=== PATIENT | male | born 1995 | race Caucasian/White ===

== ENCOUNTER 2019-08-10 13:27 | Emergency (ER) | payer OTHER, SELFPAY ==
[2019-08-10 13:44] VITALS: BP 120/76; PULSE 77; RESP 16; TEMP 37.1; O2SAT 98
--- NOTE | 2019-08-10 13:56 | ED.EAR ---
HPI - Ear Problem General Chief complaint: Ear Stated complaint: ear pain Time Seen by Provider: 08/10/19 13:51 Source: patient and RN notes reviewed Mode of arrival: ambulatory Limitations: no limitations History of Present Illness HPI Narrative: Patient presents today complaining of right ear pain, absent hearing since yesterday. Denies drainage. Currently rates his pain 5/10. He applied peroxide and attempted to flush his ear out yesterday with little resulting. He has tried no cooe-jvv-zlaepey medicines for pain prior to arrival. MD Complaint: ear pain Related Data Home Medications Medication Instructions Recorded Confirmed citalopram [Celexa] 10 mg PO DAILY 08/10/19 08/10/19 clonidine HCl [Catapres] 0.4 mg PO HS 08/10/19 08/10/19 Allergies Allergy/AdvReac Type Severity Reaction Status Date / Time No Known Allergies Allergy Verified 08/10/19 13:50 Review of Systems Review of Systems: Narrative: CONSTITUTIONAL: Denies body aches, fever, chills, or sweats. EYES: Denies visual changes, redness, or discharge. ENT: Denies rhinorrhea, congestion, sore throat. + Right ear pain CARDIOVASCULAR: Denies chest pain, palpitations, or edema. RESPIRATORY: Denies cough or dyspnea. GASTROINTESTINAL: Denies abdominal pain, nausea, vomiting, or diarrhea. GENITOURINARY: Denies dysuria or hematuria. SKIN: Denies rash, itching, or wounds. MUSCULOSKELETAL: Denies back pain, joint pain, or myalgia. NEUROLOGIC: Denies headache, numbness, tingling, or weakness. PSYCH: Denies depression or anxiety. PMFSH Social History Social History Gender identity (if verbalized by the patient): Male Comments At time of signature, I have reviewed and agree with nursing past medical, surgical, social and family history unless otherwise noted. Please see nursing chart for further information. There is no relevant family history pertinent to the presenting complaint Exam Narrative: Exam Narrative: GENERAL: Well-appearing, over-nourished, and in no acute distress. HEAD: Normocephalic, atraumatic. EYES: EOMI. No redness or drainage. Conjunctivae normal. ENT: Mucous membranes pink and moist. Bilateral ear canals are impacted with wax. TMs are not visualized. NECK: Normal AROM. CHEST: No respiratory distress. EXTREMITIES: Normal range of motion. No edema. SKIN: Warm, dry, no rash. Capillary refill normal. Normal skin turgor. NEURO: No focal deficits. Alert and oriented x3. Gait steady. PSYCH: Normal affect. No signs of depression or anxiety. Course Vital Signs Vital signs: Vital Signs Temperature 98.7 F 08/10/19 13:44 Pulse Rate 77 08/10/19 13:44 Respiratory Rate 16 08/10/19 13:44 Blood Pressure 120/76 08/10/19 13:44 Pulse Oximetry 98 08/10/19 13:44 Temperature 98.7 F 08/10/19 13:44 Pulse Rate 77 08/10/19 13:44 Respiratory Rate 16 08/10/19 13:44 Blood Pressure 120/76 08/10/19 13:44 Pulse Oximetry 98 08/10/19 13:44 Reviewed Procedures Ear Wax Removal Both Ears: Ear Wax Removal Date: 08/10/19 Ear Wax Removal Time: 13:58 Cerumenolytic Used: other (Hydrogen peroxide) Results: Re-examined: some cerumen remains TM Examination: TM(s) intact, normal appearance Ear Canal Exam: atraumatic Patient Tolerated Procedure: well Complications: no problems Technique: ear canal irrigated Additional Comments: Cerumen only removed from right ear, not both. Medical Decision Making Differential Diagnosis Differential Diagnosis: Otitis media, otitis externa, ruptured TM, serous otitis, eustachian tube dysfunction, cerumen impaction Vital Signs Vital Signs: Vital Signs Temperature 98.7 F 08/10/19 13:44 Pulse Rate 77 08/10/19 13:44 Respiratory Rate 16 08/10/19 13:44 Blood Pressure 120/76 08/10/19 13:44 Pulse Oximetry 98 08/10/19 13:44 Temperature 98.7 F 08/10/19 13:44 Pulse Rate 77 08/10/19 13:44 Respiratory Ra
== END 2019-08-10 15:03 | disposition home or self-care (01) ==
PROVIDERS: Emergency Provider Nurse Practitioner; PCP Physician Assistant
DX: H61.21 Impacted cerumen, right ear (principal)
CPT/HCPCS: 69209; 99212; G0463

== ENCOUNTER 2019-09-11 03:48 | Emergency (ER) | payer OTHER, SELFPAY ==
[2019-09-11 03:55] VITALS: BP 141/76; PULSE 83; RESP 18; TEMP 36; O2SAT 99
--- NOTE | 2019-09-11 04:11 | ED.HA ---
HPI - Headache General Chief Complaint: Headache Stated Complaint: headache Time Seen by Provider: 09/11/19 03:56 Source: patient Mode of arrival: ambulatory Limitations: no limitations History of Present Illness HPI Narrative: This patient is a 23 year old male who presents for evaluation of frontal headache x 4 days. He states he has had constant front headache for 4 days. His pain may be worse with moving his head. He denies associated nausea, vomiting, visual changes, fever, chills, sinus symptoms, numbness , tingling or weakness. He took ibuprofen 2 days ago and tonight he took tylenol 650 mg. He also denies history of head trauma. MD elicited complaint: headache Location: frontal Pain scale (0-10): 6 Quality & Timing: dull Exacerbating factors: movement of head/neck Relieving factors: nothing Context: occurred at rest Treatments prior to arrival: acetaminophen Related Data Home Medications Medication Instructions Recorded Confirmed citalopram [Celexa] 10 mg PO DAILY 08/10/19 08/10/19 clonidine HCl [Catapres] 0.4 mg PO HS 08/10/19 08/10/19 Allergies Allergy/AdvReac Type Severity Reaction Status Date / Time No Known Allergies Allergy Verified 08/10/19 13:50 Review of Systems Review of Systems: All systems reviewed & are unremarkable except as noted in HPI and below Constitutional: Constitutional: Denies chills, Denies fever(s) and Denies weakness Eyes: Eyes: Reports no additional eye complaints, Denies change in vision and Denies photophobia ENT: Denies dizziness, Denies nasal congestion and Denies sore throat Gastrointestinal: Gastrointestinal: Denies diarrhea, Denies nausea and Denies vomiting Neurologic: Denies confusion, Denies vertigo, Denies dizziness, Denies syncope, Reports headache(s), Denies focal weakness, Denies numbness and Denies weakness [facility] Past Medical History Medical History (Updated 09/11/19 @ 05:06 by Yanira Arvizu MD) Hypertension Social History Social History Gender identity (if verbalized by the patient): Male Exam Const: General: no acute distress and alert Orientation/consciousness: patient oriented x3 HENMT: Head: normocephalic and atraumatic General nose exam: Normal external nose present and Normal nares present Face and sinus: sinuses nontender and face symmetric Mouth: Yes Normal oral and palatal mucosa present, Yes lip normal and Yes oropharynx normal Throat: posterior oropharynx normal, tonsils normal and uvula midline Eyes: Conjunctivae: conjunctivae normal Pupils: Equal, round and reactive pupils present EOM: EOMs intact bilaterally Chest: Chest palpation & inspection: normal inspection of the chest Resp: Effort & Inspection: normal respiratory effort and no retractions Auscultation: clear to auscultation bilaterally Cardio: Rate: regular rate Rhythm: regular rhythm Heart sounds: no murmurs GI: GI Palp: Yes Soft to palpation, No Tenderness to palpation present (GI), No Guarding due to palpation present (GI), No Rigid due to palpation and No Hernia present Skin: General skin exam: normal color Rashes: no rashes Other: flaky skin along frontal scalp hairline Neuro: General: patient oriented x3, moves all extremities and CN's II-XI intact bilaterally Gait exam (Neuro): Normal gait present Extrem: General: normal to inspection Psych: Mental Status: mental status grossly normal Course Reevaluation(s) Reevaluation #1: PAtient states his headache has completely resolved. I discussed with patient without other associated symptoms such as vomiting, dizziness, focal weaknes or visual changes his headache likely tension headache. He will follow up with PCP Date: 09/11/19 Time: 05:05 Vital Signs Vital signs: Vital Signs Temperature 96.8 F L 09/11/19 03:55 Pulse Rate 83 09/11/19 03:55 Respiratory Rate 18 09/11/19 03:55 Blood Pressure 141/76 H 09/11/19 03:55 Pulse Oximetry 99 09/11/19 03:55 Temperature
[2019-09-11] MEDS: KETOROLAC (*BKC) 60 MG/2 ML VIAL IM (04:19)
[2019-09-11] MEDS: ONDANSETRON HCL ODT 4 MG TABLET PO (04:19)
[2019-09-11 04:26] LABS: Add Urine Microscopic? YES; Appearance Urine Clear (Clear); Bilirubin Urine Negative (Negative); Blood Urine Negative (Negative); Color Urine Yellow (Yellow); Glucose Urine UA Negative (Negative); Ketones Urine Negative (Negative); Leukocyte Esterase Ur Negative LEU/UL (Negative); Mucus Urine Rare /lpf; Nitrate Urine Negative (Negative); Protein Urine Negative (Negative); RBC Urine 0-2 /hpf (0-2); Specific Grav Ur 1.028 (1.001-1.035); Squamous Epithelial Cell Urine Rare /hpf (Few); WBC Urine 0-3 /hpf
[2019-09-11 05:11] VITALS: BP 132/70; PULSE 70; RESP 18; O2SAT 98
[2020-08-16 10:27] VITALS: BP 146/89
== END 2019-09-11 05:12 | disposition home or self-care (01) ==
PROVIDERS: Emergency Provider General Practice; PCP Physician Assistant
DX: G44.209 Tension-type headache, unspecified, not intractable (principal); I10 Essential (primary) hypertension
CPT/HCPCS: 81001; 96372; 99283; A9270; J1885

== ENCOUNTER 2020-08-16 08:30 | Emergency (ER) | payer OTHER, SELFPAY ==
--- NOTE | ~2020-08-16 | CT_ITS ---
EXAMINATION: CT lumbar spine wo [facility] EXAM DATE: 08/16/2020 09:42 INDICATION: Low back pain, fall from height. TECHNIQUE: Spiral CT lumbar spine was performed without contrast. Axial, coronal and sagittal images of the lumbar spine were reviewed. The dose-length product (DLP) for this examination was 1283.48 mGy -cm. The exposure was tailored according to patient size (auto mA exposure control), and iterative r econstruction (ASIR) was used as additional dose reduction technique. There is no prior study for co mparison. FINDINGS: Intact sacroiliac joints. Chronic bilateral L5 spondylolysis with about 2 mm anterolisthesis L5 on S1 . There is no evidence of acute lumbar fracture. There is no disc space widening or traumatic verte bral body subluxation suspected. Paraspinal soft tissue is unremarkable. Vertebral body and disc he ights are well-maintained. A detailed level by level evaluation of spondylosis can be added as adde ndum if requested. IMPRESSION: 1. No acute lumbar findings. 2. Chronic L5 spondylolysis, minimal anterolisthesis. Reviewed, dictated and finalized at location A.
--- NOTE | ~2020-08-16 | CT_ITS ---
EXAMINATION: CT cervical spine wo con DATE: 08/16/2020 09:42 INDICATION: Neck pain after fall TECHNIQUE: Computed tomography (CT) of the cervical spine was performed without intravenous contrast. The dose-length product was 444 mGy-cm. Automated exposure control and iterative reconstruction tech nique were employed. COMPARISON: None FINDINGS: Lung apices are normal. Vertebral body and disc heights are preserved. No acute fracture, s ubluxation or dislocation. Odontoid process within normal limits. No significant paraspinal soft tiss ue abnormality. IMPRESSION: 1. No acute fracture. Reviewed, dictated and finalized at location B. IMPRESSION: 1. No acute fracture.
[2020-08-16 08:49] VITALS: BP 138/92; PULSE 92; RESP 18; TEMP 37.2; O2SAT 97
[2020-08-16 09:04] VITALS: BP 136/82; PULSE 99; RESP 15; TEMP 37.1; O2SAT 97
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
[2020-08-16] MEDS: KETOROLAC (*BKC) 60 MG/2 ML VIAL IM (09:19)
[2020-08-16 10:22] VITALS: BP 172/141; PULSE 91; RESP 16; O2SAT 98
== END 2020-08-16 10:24 | disposition home or self-care (01) ==
LOC: ANHED 10:14
PROVIDERS: Emergency Provider Emergency Medicine; PCP Physician Assistant
DX: S20.229A Contusion of unspecified back wall of thorax, initial encounter (principal); W11.XXXA Fall on and from ladder, initial encounter; I10 Essential (primary) hypertension
CPT/HCPCS: 72125; 72131; 96372; 99284; J1885

== ENCOUNTER 2020-10-26 16:25 | Emergency (ER) | payer OTHER, SELFPAY ==
[2020-10-26 16:33] VITALS: BP 129/72; PULSE 101; RESP 18; TEMP 37.1; O2SAT 97
--- NOTE | 2020-10-26 16:43 | ED.GENADULT ---
HPI - General Adult General Chief complaint: Upper Respiratory Infection Stated complaint: sore throat /cough Source: patient Mode of arrival: ambulatory Limitations: no limitations History of Present Illness HPI narrative: Patient is a 25-year-old male who presents to urgent care via POV for evaluation of a sore throat that began 12 hours ago. He also reports a semiproductive cough. Reports his throat pain to be intermittent and burning in nature. Water improves burning sensation. Nothing worsens symptoms. History of strep denies known exposure to sick contacts. Patient is not vaccinated against COVID-19. Related Data Home Medications Medication Instructions Recorded Confirmed clonidine HCl [Catapres] 0.4 mg PO HS 08/10/19 08/10/19 Allergies Allergy/AdvReac Type Severity Reaction Status Date / Time No Known Allergies Allergy Verified 08/16/20 09:16 Review of Systems Review of Systems: Denies history of COPD, bronchitis, asthma, and pneumonia. Denies current/past tobacco use. Pertinent negatives: fever, sweats, chills, change in appetite, fatigue, skin color changes, headache, nasal congestion/discharge, dizziness, lymphadenopathy, sinus problems, ear pain/drainage, drooling, difficulty swallowing, halitosis, chest pain, heart murmurs, heart palpitations, shortness of breath, wheezing, cyanosis, hemoptysis, hoarseness, orthopnea, pleuritic pain, nausea, vomiting, diarrhea, and myalgias. [facility] Past Medical History Medical History History of insomnia Hypertension Social History Social History Substance use: never Gender identity (if verbalized by the patient): Male Comments I have reviewed and agree with the patient's past medical, surgical, social, and family hx as documented by the RN. There is no relevant family history pertinent to the presenting complaint. Exam Narrative: GENERAL: Well-appearing, well-nourished, and in no acute distress. HEAD: Normocephalic, atraumatic. No sinus tenderness or facial swelling appreciated. EYES: PERRLA and EOMI. No evidence of erythema, swelling, or drainage. ENT: Bilateral external ears and ear canals normal. Bilateral TMs are normal.No TM perforation. Nares clear, no rhinorrhea or epistaxis. Bilateral turbinates without erythema/ swelling. Mucous membranes moist and pink. Uvula is midline without erythema and swelling. Mild erythema and subtle swelling noted to bilateral tonsils. No evidence of petechial rash, cobblestoning, lesions, ulcers, exudates, peritonsillar abscess, tenting, or drooling. Breath odor and voice normal. NECK: Supple. No Lymphadenopathy or nuchal rigidity appreciated. CHEST: Bilateral lung alvarez are clear to auscultation. No respiratory distress. No evidence of cough or pleuritic cp upon examination. HEART: Tachycardia with a rate of 101. Regular rhythm. No murmur, gallop, or rub heard. EXTREMITIES: Normal range of motion. No edema. SKIN: Warm, dry, no rash. NEURO: No focal deficits. Alert and oriented x3. Course Vital Signs Vital signs: Vital Signs Temperature 98.8 F 10/26/20 16:33 Pulse Rate 101 H 10/26/20 16:33 Respiratory Rate 18 10/26/20 16:33 Blood Pressure 129/72 10/26/20 16:33 Pulse Oximetry 97 10/26/20 16:33 Temperature 98.8 F 10/26/20 16:33 Pulse Rate 101 H 10/26/20 16:33 Respiratory Rate 18 10/26/20 16:33 Blood Pressure 129/72 10/26/20 16:33 Pulse Oximetry 97 10/26/20 16:33 Due to an elevated blood pressure, I had a detailed discussion with the patient and/or guardian regarding the need for follow-up with their primary care provider within the next 3-4 days. Patient verbalized understanding and agreed. Medical Decision Making Medical Records Medical records reviewed: Yes I reviewed the external patient's medical records. Vital Signs Vital Signs: Vital Signs
== END 2020-10-26 17:21 | disposition home or self-care (01) ==
PROVIDERS: Emergency Provider Nurse Practitioner Family; PCP Physician Assistant
DX: J06.9 Acute upper respiratory infection, unspecified (principal); I10 Essential (primary) hypertension
CPT/HCPCS: 87081; 87880; 99213; G0463

== ENCOUNTER 2021-08-28 09:23 | Emergency (ER) | payer OTHER, SELFPAY ==
[2021-08-28 09:26] VITALS: BP 150/104; PULSE 104; RESP 16; TEMP 36.4; O2SAT 99
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
[2021-08-28] MEDS: SODIUM CHLORIDE 0.9% IV 1,000 ML 999 ML IV CONT (10:16)
[2021-08-28] MEDS: KETOROLAC 30 MG/ML VIAL (*BKC) IV PUSH (10:16)
== END 2021-08-28 11:49 | disposition home or self-care (01) ==
PROVIDERS: Emergency Provider Nurse Practitioner Family; PCP Physician Assistant
DX: L55.1 Sunburn of second degree (principal); I10 Essential (primary) hypertension
CPT/HCPCS: 96361; 96374; 99284; J1885; J7030